=== PATIENT | male | born 1955 | race Caucasian/White ===

== ENCOUNTER → 2017-03-18 | Outpatient (CLI) | payer BC | END | disposition home or self-care (01) | LOC: LABPAT 09:23 | PROVIDERS: ATTEND Orthopaedic Surgery | DX: Z01.812 Encounter for preprocedural laboratory examination (principal) | CPT/HCPCS: 86850; 86900; 86901; 87070 ==

== ENCOUNTER → 2017-12-10 | Outpatient (CLI) | payer OTHER ==
--- NOTE | 2017-12-10 13:26 | CTL ---
EXAMINATION TYPE: CT Low Dose Lung DATE OF EXAM ORDERED: 12/10/2017 HISTORY: . Lung cancer screening CT DLP: 113.[address] CTDI: 3.2 mGy Automated exposure control for dose reduction was used. COMPARISON: None TECHNIQUE: Low dose computed tomography scan was performed through the chest at 1 mm thick sections a nd reconstructed images in the coronal plane at [address] DIAGNOSTIC QUALITY: Satisfactory FINDINGS: LUNG NODULES: None. a nodule with a size of . Nodule Size in Millimeters mm was visualized with Nodule Type: that is Nod ule state: in nature on image # CT Image slide number . a nodule with a size of . Nodule Size in Millimeters mm was visualized with Nodule Type: that is Nod ule state: in nature on image # CT Image slide number . LUNGS: There is diffuse emphysematous changes involving the lungs. There is apical pleural thickening bilate rally. Subsegmental consolidation involving the right lower lobe and right upper lobe is most typical of ate lectasis. No sizable pleural effusion. No pneumothorax. Changes of basilar and central bronchiectasis. Pulmonary nodules: 1. There is a 3 mm pleural-based nodule within the anterior segment of the right lower lobe. 2. There is a 4 mm nodule within the right upper lobe. 3. There are 2 calcified nodules within the right upper lobe noted on axial images 74 and 75 There is a small hiatal hernia. Coronary artery calcification seen. Assessment for adenopathy is limi cuate by noncontrast technique. Grossly no pathologic adenopathy. Atherosclerotic change of the vascula ture. Hypertrophic and degenerative change of the spine. IMPRESSION: 1. Diffuse emphysematous changes are seen with a couple less than 5 mm pulmonary nodule identified. FOLLOW UP CT CHEST RECOMMENDATION: Six-month follow-up recommended CT LUNG RAD: Category 2
== END | disposition home or self-care (01) ==
LOC: RADCTMAIN 06:47
PROVIDERS: ATTEND Family Medicine
DX: Z12.2 Encounter for screening for malignant neoplasm of respiratory organs (principal); R91.1 Solitary pulmonary nodule; J43.9 Emphysema, unspecified; Z87.891 Personal history of nicotine dependence

== ENCOUNTER → 2018-02-09 | Outpatient (CLI) | payer OTHER ==
--- NOTE | 2018-02-09 08:06 | MR ---
EXAMINATION TYPE: MR knee LT wo con DATE OF EXAM: 02/09/2018 COMPARISON: NONE HISTORY: Pain in left knee TECHNIQUE: Multiplanar, multisequence imaging of the left knee is performed without IV contrast. FINDINGS: MEDIAL MENISCUS: Anterior and posterior horns are intact without tear. There is increased signal with in the posterior horn and the body of the medial meniscus without continuity of the articular surface s representing myxoid degeneration. LATERAL MENISCUS: Minimal increased signal seen in the posterior horn of the lateral meniscus with sm all free edge radial tear seen on sagittal PD fat-sat image 11 is there is undulation of the free edg e. Anterior horn is intact. CRUCIATE LIGAMENTS: The anterior and posterior cruciate ligaments are intact. However there is increa sed signal and thickening of the insertional fibers suggestive of low-grade sprain. COLLATERAL LIGAMENTS: The medial collateral ligament and lateral collateral ligament complex are inta ct and unremarkable. EXTENSOR MECHANISM: Visualized quadriceps and patellar tendons are intact. EFFUSION: No significant suprapatellar joint effusion. POPLITEAL CYST: No popliteal/lundberg cyst. TRICOMPARTMENT SPACES: No significant joint space narrowing. Very small marginal osteophytes are seen of the lateral compartment. CARTILAGE: Partial-thickness chondral defect is present of the lateral tibial plateau measuring 5 mm. Signal heterogeneity is seen in the medial weightbearing surface with focal fissure on image 24 on t he sagittal PD fat-sat sequence. However there is no focal full-thickness cartilaginous defect. Simil nancy slight signal heterogeneity seen of the lateral patellar facet with no focal partial or full-thi ckness defects. BONE MARROW SIGNAL: No focal abnormal marrow signal is appreciated. There is some limitation given me tallic hardware susceptibility artifact. OTHER: Susceptibility artifact is created from tibial metaphyseal and proximal diaphyseal surgical f ixation screws. Small subchondral cystic changes are seen anterior to the tibial eminence. IMPRESSION: 1. Small radial free edge tear of the posterior horn of the lateral meniscus. 2. 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 3. Mild unicompartmental (lateral compartment) arthrosis and mild tricompartmental chondrosis with 5 mm partial-thickness chondral defect of the lateral tibial plateau. No underlying bone marrow edema. 4. Findings compatible with low-grade ACL sprain. 5. Partial visualization of postsurgical fixation of the proximal tibia.
== END | disposition home or self-care (01) ==
LOC: RADMRIMAIN 06:02
PROVIDERS: ATTEND Specialist
DX: S83.282A Other tear of lateral meniscus, current injury, left knee, initial encounter (principal); M17.12 Unilateral primary osteoarthritis, left knee; M89.8X6 Other specified disorders of bone, lower leg

== ENCOUNTER → 2018-02-11 | Outpatient (CLI) | payer OTHER | END | disposition home or self-care (01) | LOC: LABPAT 09:50 | PROVIDERS: ATTEND Orthopaedic Surgery | DX: Z01.812 Encounter for preprocedural laboratory examination (principal); M16.11 Unilateral primary osteoarthritis, right hip | CPT/HCPCS: 36415; 86850; 86900; 86901; 87070 ==

== ENCOUNTER 2018-02-21 10:15 | Inpatient (IN) | payer BC, OTHER ==
--- NOTE | 2018-02-20 11:10 | HP ---
HISTORY AND PHYSICAL DATE OF SERVICE: 02/21/2018. HISTORY: Ld Vickers is a 62-year-old patient seen with symptomatic right hip osteoarthritis. Treatment options were discussed. The patient elected to proceed with right total hip arthroplasty. Consent was obtained. Medical clearance provided by Dr. Mendes. PAST MEDICAL HISTORY: Hypertension. PAST SURGICAL HISTORY: Repair left foot tib-fib fracture. MEDICATIONS: Amlodipine, baclofen, Xarelto. ALLERGIES: None reported. SOCIAL HISTORY: Patient currently smokes cigarettes. PHYSICAL EXAMINATION: Physical evaluation of the right hip, he has very limited range of motion with severe pain. Diffuse tenderness. Positive impingement sign. Straight leg raise negative. Distal neurovascular exam intact. RADIOGRAPHIC DATA: Right hip radiographs reveal severe osteoarthritis. IMPRESSION: 1. Right hip osteoarthritis. 2. Hypertension. 3. Tobacco use. PLAN: Direct anterior right total hip arthroplasty. MMODL / IJN: [id number] /
[~2018-02-21 10:15] MED LIST: ACETAMINOPHEN TAB 500 MG TAB PO ONE; DEXAMETHASONE SOD PHOSPHATE 10 MG/ML 1 ML VIAL IV ONE; LIDOCAINE 1% 20 ML VIAL (10MG/ML) FOR IV START INTRADERMA PRN; MELOXICAM 7.5 MG TAB PO ONE; MIDAZOLAM 2 MG/2 ML VIAL IV PRN; SCOPOLAMINE 1.5MG/72HR PATCH TRANSDERM ONE; TRANEXAMIC ACID 1,000 MG in SODIUM CHLORIDE 0.9% 50 ML IVPB ONE; fentaNYL (PF) 50 MCG/ML 2 ML AMP IV PRN
[2018-02-21] MEDS ORDERED: ONDANSETRON 4 MG/2 ML VIAL ONE (10:33)
[2018-02-21] MEDS: LACTATED RINGERS 1,000 ML IV SCH ×5 (12:02→20:25)
[2018-02-21] MEDS ORDERED: ROPIVACAINE 246.25 MG, EPINEPHrine 0.5 MG, KETOROLAC 30 MG, cloNIDine HCL/PF 80 MCG, WA... MISCELLANE ONE ×5 (12:19)
[2018-02-21] MEDS ORDERED: ONDANSETRON 4 MG/2 ML VIAL IVP ONE (12:36)
[2018-02-21] MEDS ORDERED: SODIUM CHLORIDE 0.9% 100 ML BAG ONE (13:06)
[2018-02-21] MEDS ORDERED: PHENYLEPHRINE-0.9% NACL SYG 1 MG/10 ML SYRINGE ONE (13:06)
[2018-02-21] MEDS ORDERED: HYDROmorphone (PF) 1 MG/ML ONE (13:06)
[2018-02-21] MEDS ORDERED: GLYCOPYRROLATE 0.2 MG/ML 2 ML VIAL ONE (13:06)
[2018-02-21] MEDS ORDERED: ePHEDrine SULFATE/0.9% NACL/PF 50 MG/5 ML SYRINGE IV ONE (13:06)
[2018-02-21] MEDS ORDERED: EPINEPHrine 10 ML SYRINGE (0.1 MG/ML) ONE (13:06)
[2018-02-21] MEDS ORDERED: diphenhydrAMINE 50 MG/ML 1 ML VIAL ONE (13:06)
[2018-02-21] MEDS ORDERED: TRANEXAMIC ACID 1,000 MG/10 ML VIAL ONE (13:06)
[2018-02-21] MEDS ORDERED: fentaNYL (PF) 50 MCG/ML 2 ML AMP ONE (13:06)
[2018-02-21] MEDS ORDERED: MIDAZOLAM 2 MG/2 ML VIAL ONE (13:06)
[2018-02-21] MEDS ORDERED: LACTATED RINGERS 1,000 ML IV ONE ×2 (13:57→15:39)
[2018-02-21] MEDS ORDERED: HYDROcodone/APAP 7.5-325MG 1 EACH TAB PO PRN (15:47)
[2018-02-21] MEDS ORDERED: HYDROmorphone 0.5 MG/0.5 ML SYRINGE IVP PRN ×3 (15:47)
[2018-02-21] MEDS ORDERED: hydrOXYzine PAMOATE 25 MG CAP PO PRN (15:47)
[2018-02-21] MEDS ORDERED: ONDANSETRON 4 MG/2 ML VIAL IVP PRN (15:47)
[2018-02-21] MEDS ORDERED: NALOXONE 0.4 MG/ML 1 ML VIAL IV PRN (15:47)
--- NOTE | 2018-02-21 15:47 | P.OP ---
Date of Procedure: 02/21/18 Preoperative Diagnosis: Right hip osteoarthritic Postoperative Diagnosis: Right hip osteoarthritis Procedure(s) Performed: Direct anterior right total hip arthroplasty Implants: 1. Depuy Corail ZABRINA size 16 high offset no collar press-fit femoral stem 2. Depuy pinnacle 64 mm press-fit acetabular shell 3. Depuy pinnacle polyethylene acetabular liner +4 neutral 36 mm ID 64 mm OD 4. Biolox delta ceramic femoral head +8.5 36 mm Anesthesia: local, spinal Surgeon: Denis Flores Parking Cashier #1: Randy Young Estimated Blood Loss (ml): 500 Pathology: other (Femoral head) Condition: stable Disposition: PACU Indications for Procedure: 62-year-old patient seen was symptomatic right hip osteoarthritis. After treatment options were discussed he elected to proceed with direct anterior right total hip arthroplasty. Operative Findings: see description of procedure Description of Procedure: The patient was taken to the operative suite. Patient underwent a spinal anesthetic by the department of anesthesia. Patient was then transferred to the [place] table. Patient was given preoperative IV antibiotics and TXA. Both lower extremities were placed in standard leg spars. The hip was then prepped and draped in the normal sterile orthopedic fashion. A standard anterior incision was made beginning 3 cm lateral and 1 cm distal to the ASIS extending 10 cm. Dissection was then carried down through the subcutaneous soft tissues down to the fascia overlying the tensor fascia jurgen. An incision was now made through the fascia. Careful dissection was taken down exposing the tensor fascia jurgen muscle. A Cobra retractor was now placed along the medial femoral neck and a second one along the lateral femoral neck. The venous circumflex vessels were now identified, cauterized and clipped. We identified the anterior hip capsule. An incision was made through the hip capsule along the lateral border. Tag sutures were then placed along the anterior capsule and lateral capsule. We then performed a capsulotomy. Retractors were now placed around the femoral neck itself. A Cobra retractor was now placed along the anterior acetabulum. Good exposure was now noted of the femoral head/neck complex. Residual labrum was debrided out. We placed the extremity into 3 turns of fine traction. We were then able to introduce a skid in between the femoral head and acetabulum. A placed a awl into the femoral head. We took 2 turns of traction off the extremity. Rotation was now released. The femoral head was then dislocated without difficulty. Additional releasing was performed of the capsule. The head was then reduced. All traction was released. A femoral neck cut was now made with a sagittal saw. It was completed with an osteotome at the lateral neck area. The femoral head was now removed without difficulty. The extremity was now rotated to 60 of external rotation. It was locked in position. Residual labrum was now debrided out. Serial reaming was performed of the acetabulum. Once we reached the appropriate size and a trial was position and fit nicely. The appropriate size was now chosen opened and made available. It was introduced into the acetabulum without difficulty. The C-arm/fluoroscopy was now brought into the operative field. We made sure we had a true AP pelvic view. We now under direct C-arm/fluoroscopy introduced into the acetabular component with appropriate version and inclination. It was well seated and stable. The C-arm was pulled back. An appropriate liner was introduced and clicked into position. It was felt to be stable. At this point retractors were removed. The extremity was now placed into 120 external rotation with no traction. The leg was now dropped to the ground and adducted. Appropriate retractors were now positioned along the proximal femur. We also placed our femoral look into position. Additional capsular releasing was performed to gain access to the proximal femur. We now used a box osteotome. A canal finder was now utilized. Serial broaching was now performed and noted a very tight canal. At this point we used serial canal reamers to get a set to our probable size 16. We now placed back in our broach to a size 16 which a good stability and rotational stability as well. Appropriate calcar planing was performed. A trial head/neck was placed into position. The hip was now reduced. The C-arm/ fluoroscopy was brought back into the operative field. A spot film was obtained of the nonoperative hip. A spot film was obtained of the trial components. Overlays were performed, we noted good overall alignment and positioning for determining leg length. The C-arm/fluoroscopy was pulled back. Retractors were repositioned and the hip was dislocated. The leg was again taken down to the ground and adducted. Appropriate retractors were repositioned as well as the femoral hook. All trial components were removed. The femoral implant was opened along with the femoral head. The femoral implant was introduced with good purchase and fixation noted. The femoral head was introduced with good positioning and fixation noted. Retractors were now removed. The hip was now reduced. There appeared be good positioning of the hip. Bipolar cautery had been utilized intermittently through the procedure for hemostasis. The wound was irrigated copiously with pulse lavage mechanical irrigation. The fascia was repaired with Vicryl suture. The subcutaneous soft tissues were repaired in layers with Vicryl suture. The skin was approximated with pernio/Dermabond. Sterile dressings were applied. Patient was then awakened, transferred to a bed and taken to recovery in stable condition. Hunter CORONEL assisted with the procedure.
--- NOTE | 2018-02-21 16:11 | XR ---
Limited right hip HISTORY: Hip arthroplasty Intraoperative C-arm image documents the procedure
--- NOTE | 2018-02-21 16:13 | FL ---
Fluoroscopy HISTORY: Hip replacement 31 seconds fluoroscopy time supplied to the referring clinician. 1 intraoperative C-arm images docum ent the procedure. See dictated report from orthopedic surgery.
[2018-02-21] MEDS ORDERED: NOREPINEPHRIN 16 MG-0.9%NS PMX 16 MG/250 ML ML IV SCH (16:30)
--- NOTE | 2018-02-21 17:19 | XR ---
EXAMINATION: XR chest 1V portable DATE AND TIME: 02/21/2018 5:03 PM ORDERING PROVIDER: Monico Velez CLINICAL INDICATION: Central line placement TECHNIQUE: AP portable semiupright CXR COMPARISON: None. DESCRIPTION: Right IJ catheter tip superimposed over the mid SVC. On this portable semiupright chest x-ray there is no evidence of pneumothorax. Pleural spaces are neg ative. There is mild silhouetting of the arborization of the pulmonary vasculature symmetrically by a fine r eticular pattern of increased density, rather subtle. These findings can correlate with the clinical diagnosis of mild interstitial phase pulmonary edema. The cardiac silhouette and mediastinal hilar silhouettes are unremarkable. The bones and soft tissues are negative for acute findings. IMPRESSION: No definite acute process, although clinical exclusion of mild interstitial phase pulmonary edema is requested.
[2018-02-21 17:34] LABS: Basophils % (A) 0 %; Eosinophils # (A) 0.1 k/uL (0-0.7); Eosinophils % (A) 1 %; HCT 35.2 % (39.0-53.0); HGB 11.4 gm/dL (13.0-17.5); Lymphocytes % (A) 10 %; MCH 30.3 pg (25.0-35.0); MCHC 32.4 g/dL (31.0-37.0); MCV 93.5 fL (80.0-100.0); Mean Platelet Volume 7.5; Monocytes # (A) 0.4 k/uL (0-1.0); Monocytes % (A) 4 %; Neutrophils # (A) 7.8 k/uL (1.3-7.7); Neutrophils % (A) 84 %; Platelet Count 171 k/uL (150-450); RBC 3.77 m/uL (4.30-5.90); RDW 13.7 % (11.5-15.5); WBC 9.3 k/uL (3.8-10.6)
[2018-02-21 17:41] LABS: ALT 31 U/L (21-72); AST 24 U/L (17-59); Albumin 2.3 g/dL (3.5-5.0); Alkaline Phosphatase 39 U/L (38-126); Anion Gap 7 mmol/L; Blood Urea Nitrogen 15 mg/dL (9-20); Calcium 7.4 mg/dL (8.4-10.2); Carbon Dioxide 21 mmol/L (22-30); Chloride 111 mmol/L (98-107); Glucose 87 mg/dL (74-99); Potassium 4.2 mmol/L (3.5-5.1); Sodium 139 mmol/L (137-145); Total Bilirubin 0.4 mg/dL (0.2-1.3); Total Protein 4.4 g/dL (6.3-8.2)
[2018-02-21 17:45] LABS: INR 1.4 (<1.2); Prothrombin Time 12.7 sec (9.0-12.0)
[2018-02-21 18:06] LABS: Glucose,Whole Blood 101 mg/dL (75-99)
[2018-02-21] MEDS ORDERED: SODIUM CHLORIDE 0.9% 250 ML IV ONE (18:17)
[2018-02-21] MEDS: HYDROcodone/APAP 7.5-325MG 1 EACH TAB PO PRN (20:57)
[2018-02-21] MEDS: SENNOSIDES-DOCUSATE SODIUM 1 EACH TAB PO SCH (20:58)
[2018-02-21] MEDS: traMADol 50 MG TAB PO SCH (20:58)
[2018-02-21] MEDS: ceFAZolin IN SWFI 2 GM/20 ML SYRINGE IVP SCH (20:58)
[2018-02-21] MEDS: SODIUM CHLORIDE 0.9% 1,000 ML IV SCH (20:58)
[2018-02-21 23:10] LABS: Magnesium 1.6 mg/dL (1.6-2.3); Potassium 4.5 mmol/L (3.5-5.1)
[2018-02-22] MEDS: MAGNESIUM SULFATE-D5W PMX 1 GM in DEXTROSE/WATER 1 100ML.BAG IVPB SCH ×2 (00:14→02:28)
[2018-02-22] MEDS: SODIUM CHLORIDE 0.9% 1,000 ML IV SCH ×3 (02:29→13:09)
[2018-02-22] MEDS: traMADol 50 MG TAB PO SCH ×5 (02:29→22:09)
[2018-02-22] MEDS: ceFAZolin IN SWFI 2 GM/20 ML SYRINGE IVP SCH (02:29)
[2018-02-22 05:04] LABS: Basophils % (A) 0 %; Eosinophils # (A) 0.1 k/uL (0-0.7); Eosinophils % (A) 2 %; HCT 36.6 % (39.0-53.0); HGB 12.2 gm/dL (13.0-17.5); Lymphocytes # (A) 1.4 k/uL (1.0-4.8); Lymphocytes % (A) 18 %; MCH 31.2 pg (25.0-35.0); MCHC 33.3 g/dL (31.0-37.0); MCV 93.7 fL (80.0-100.0); Mean Platelet Volume 6.9; Monocytes # (A) 0.4 k/uL (0-1.0); Monocytes % (A) 6 %; Neutrophils # (A) 5.5 k/uL (1.3-7.7); Neutrophils % (A) 73 %; Platelet Count 177 k/uL (150-450); RBC 3.91 m/uL (4.30-5.90); RDW 13.5 % (11.5-15.5); WBC 7.5 k/uL (3.8-10.6)
[2018-02-22 05:27] LABS: Anion Gap 8 mmol/L; Blood Urea Nitrogen 16 mg/dL (9-20); Calcium 7.9 mg/dL (8.4-10.2); Carbon Dioxide 22 mmol/L (22-30); Chloride 104 mmol/L (98-107); Glucose 107 mg/dL (74-99); Potassium 4.1 mmol/L (3.5-5.1); Sodium 134 mmol/L (137-145)
[2018-02-22] MEDS: ENOXAPARIN 40 MG/0.4 ML SYRINGE SQ SCH (08:25)
[2018-02-22] MEDS: FAMOTIDINE 20 MG TAB PO SCH (08:25)
[2018-02-22] MEDS: MELOXICAM 7.5 MG TAB PO SCH (08:25)
--- NOTE | 2018-02-22 11:27 | P.PN ---
Subjective Progress Note Date: 02/22/18 Principal diagnosis: Status post right direct anterior total hip arthroplasty Patient is seen today resting in his hospital bed, he is on the ICU unit at this time. During surgery yesterday, he did have an episode of significantly low blood pressure, there is concern of a heart block. Proper measures were taken by the anesthesia room staff, he was stable throughout. Cardiology was consulted with regards to the patient. He is examined at bedside today, he's feeling very well at this time. No pain in the hip. He denies any chest pain. He has not been up ambulating at this time. Objective - Vital Signs Vital signs: Vital Signs Temp 97.9 F 02/22/18 08:00 Pulse 64 02/22/18 10:00 Resp 14 02/22/18 10:00 BP 101/67 02/22/18 10:00 Pulse Ox 90 L 02/22/18 10:00 Intake & Output 02/21/18 02/22/18 02/22/18 18:59 06:59 18:59 Intake Total 4400 2480 225 Output Total 500 975 730 Balance 3900 1505 -505 Weight 107.7 kg Intake: IV 4150 1200 Sodium Chloride 0.9% 1, 100 1200 000 ml @ 100 mls/hr IV . Q10H [facility] Rx#:[id number] Intake, IV Titration 250 225 Amount Sodium Chloride 0.9% 1, 225 000 ml @ 75 mls/hr IV . [id number] [facility] Rx#:[id number] Sodium Chloride 0.9% 250 250 ml @ 999 mls/hr IV .Q16M [facility] Rx#:[id number] Oral 1280 Output: Urine 975 730 Estimated Blood Loss 500 Other: Voiding Method Urinal ABP, PAP, CO, CI - Last Documented Arterial Blood Pressure 132/70 - Exam Right lower extremity: Incision is clean, dry, and intact. The prineo tape is in good condition. There is minimal soft tissue swelling and ecchymosis surrounding the medial and lateral aspects of the incision. Calf is soft, no tenderness with palpation. Plantar flexion, dorsiflexion, EHL, FHL are intact. Sensory exam to light touch throughout the extremity is intact, dorsal pedis pulses 2+. - Labs CBC & Chem 7: 02/22/18 04:45 02/22/18 04:45 Labs: Abnormal Lab Results - Last 24 Hours (Table) 02/21/18 02/21/18 02/21/18 Range/Units 16:50 16:50 16:50 RBC 3.77 L (4.30-5.90) m/uL Hgb 11.4 L (13.0-17.5) gm/dL Hct 35.2 L (39.0-53.0) % Neutrophils # 7.8 H (1.3-7.7) k/uL PT 12.7 H (9.0-12.0) sec INR 1.4 H (<1.2) Sodium (137-145) mmol/L Chloride 111 H (98-107) mmol/L Carbon Dioxide 21 L (22-30) mmol/L Glucose (74-99) mg/dL POC Glucose (mg/dL) (75-99) mg/dL Calcium 7.4 L (8.4-10.2) mg/dL Troponin I (0.000-0.034) ng/mL Total Protein 4.4 L (6.3-8.2) g/dL Albumin 2.3 L (3.5-5.0) g/dL 02/21/18 02/21/18 02/21/18 Range/Units 16:50 18:04 22:12 RBC (4.30-5.90) m/uL Hgb (13.0-17.5) gm/dL Hct (39.0-53.0) % Neutrophils # (1.3-7.7) k/uL PT (9.0-12.0) sec INR (<1.2) Sodium (137-145) mmol/L Chloride (98-107) mmol/L Carbon Dioxide (22-30) mmol/L Glucose (74-99) mg/dL POC Glucose (mg/dL) 101 H (75-99) mg/dL Calcium (8.4-10.2) mg/dL Troponin I 0.059 H* 0.064 H* (0.000-0.034) ng/mL Total Protein (6.3-8.2) g/dL Albumin (3.5-5.0) g/dL 02/22/18 02/22/18 02/22/18 Range/Units 04:45 04:45 04:45 RBC 3.91 L (4.30-5.90) m/uL Hgb 12.2 L (13.0-17.5) gm/dL Hct 36.6 L (39.0-53.0) % Neutrophils # (1.3-7.7) k/uL PT (9.0-12.0) sec INR (<1.2) Sodium 134 L (137-145) mmol/L Chloride (98-107) mmol/L Carbon Dioxide (22-30) mmol/L Glucose 107 H (74-99) mg/dL POC Glucose (mg/dL) (75-99) mg/dL Calcium 7.9 L (8.4-10.2) mg/dL Troponin I 0.039 H* (0.000-0.034) ng/mL Total Protein (6.3-8.2) g/dL Albumin (3.5-5.0) g/dL Assessment and Plan Plan: Assessment: 1. Postop day 1 status post direct anterior right total hip arthroplasty Plan: Pain control, continue use of low-dose oral medication Daily physical therapy GI and DVT prophylaxis per cardiac recommendation Cardiology recommendations Internal medicine recommendations Daily dressing changes Anticipated discharge home in the next day or 2 Time with Patient: Less than 30
--- NOTE | 2018-02-22 11:47 | ECHOF ---
Referral Reason:EKG changes MEASUREMENTS -------- HEIGHT: 190.5 cm WEIGHT: 99.8 kg BP: 104/52 RVIDd: 2.6 cm (< 3.3) IVSd: 1.3 cm (0.6 - 1.1) LVIDd: 3.5 cm (3.9 - 5.3) LVPWd: 1.2 cm (0.6 - 1.1) IVSs: 1.3 cm LVIDs: 2.4 cm LVPWs: 1.3 cm LAESV Index (A-L): 10.07 ml/m Ao Diam: 3.3 cm (2.0 - 3.7) AV Cusp: 1.9 cm (1.5 - 2.6) LA Diam: 2.9 cm (2.7 - 3.8) EPSS: 0.7 cm MV E Jaya: 0.60 m/s MV DecT: 294 ms MV A Jaya: 0.61 m/s MV E/A Ratio: 0.99 RAP: 5.00 mmHg RVSP: 12.05 mmHg MV EF SLOPE: 40.52 mm/s (70 - 150) MV EXCURSION: 0.92 cm (> 18.000) FINDINGS -------- Sinus rhythm. This was a technically difficult study with suboptimal views. The left ventricular size is normal. There is mild concentric left ventricular hypertrophy. Overa ll left ventricular systolic function is normal with, an EF between 60 - 65 %. The right ventricle is normal in size and function. Normal LA size by volume 22+/-6 ml/m2. The right atrium is normal in size. 3ml of Lumason was utilized for enhancement of images. The aortic valve is trileaflet, and appears structurally normal. No aortic stenosis or regurgitation. The mitral valve leaflets are mildly thickened. There is trace to mild mitral regurgitation. Trace tricuspid regurgitation present. Right ventricular systolic pressure is normal at < 35 mmHg. There is no evidence of pulmonary hypertension. The pulmonic valve was not well visualized. There is no pulmonic regurgitation present. The aortic root size is normal. Normal inferior vena cava with normal inspiratory collapse consistent with estimated right atrial pre ssure of 5 mmHg. There is no pericardial effusion. CONCLUSIONS -------- 1. Sinus rhythm. 2. This was a technically difficult study with suboptimal views. 3. The left ventricular size is normal. 4. There is mild concentric left ventricular hypertrophy. 5. Overall left ventricular systolic function is normal with, an EF between 60 - 65 %. 6. Normal LA size by volume 22+/-6 ml/m2. 7. 3ml of Lumason was utilized for enhancement of images. 8. The aortic valve is trileaflet, and appears structurally normal. No aortic stenosis or regurgitati on. 9. The mitral valve leaflets are mildly thickened. 10. There is trace to mild mitral regurgitation. 11. Trace tricuspid regurgitation present. 12. Right ventricular systolic pressure is normal at < 35 mmHg. 13. The pulmonic valve was not well visualized. 14. There is no pulmonic regurgitation present. 15. The aortic root size is normal. 16. There is no pericardial effusion. [employer]STATE LEGAL ASSISTANT: Erik Clancy RDCS
--- NOTE | 2018-02-22 12:00 | CONS ---
CONSULTATION This gentleman was seen by me yesterday evening when I came in to see him in the ICU. He underwent an elective right total hip arthroplasty via anterior approach by Dr. Flores. Before he began the surgery after they gave him a spinal he became hypotensive and bradycardic, given some epinephrine and surgery was performed. Post procedure again he developed hypotension, bradycardia and I was asked to see him. Apparently he had some EKG changes and isolated PVCs. Troponin was borderline and because of hypotension, bradycardia, I recommended Levophed which was probably used for a very short duration and then he was transferred over to the ICU. I evaluated him in the ICU. At that time, his blood pressure was about 90 or so systolic and I gave him additional IV fluids of nearly 1-1/2 L total and with this he improved remarkably. This morning he is asymptomatic, resting comfortably. Blood pressure and heart rate are good and he is not on any pressors at this time. He remains in sinus rhythm. EKG this morning is unremarkable. Troponin does not show any significant elevation to suggest myocardial damage. PAST MEDICAL HISTORY: 1. Degenerative joint disease. 2. Hypertension, on a combination of amlodipine and benazepril. 3. The patient also has a history of some bronchial asthma type picture as well. MEDICATIONS: Home medications include amlodipine benazepril 5/20, [place], Flexeril, and some inhalers. ALLERGIES: He is allergic to VANCOMYCIN. PHYSICAL EXAMINATION: On examination this morning, his blood pressure is 127/72, pulse rate is 64 per minute regular. HEENT: Unremarkable. Fundus was not examined by me. NECK: Supple. No JVD. I do not hear a carotid bruit. There is a central line in the right neck area in the jugular line. Heart exam reveals S1, S2 heard normally. No rub, murmur or gallop. Lungs reveal decent air entry. Abdomen is soft. Lower extremity exam was deferred. Central nervous system is grossly within normal limits. Echocardiogram performed yesterday revealed preserved systolic function. Troponin levels do not suggest any myocardial injury of significance at this time. The levels were 0.05, 0.06 and 0.039, which can reflect some relation to the hypotension that was there preoperatively. IMPRESSION: 1. Hypotension, probably related to high spinal anesthesia requiring IV fluids. 2. Hypertension. 3. Status post right total hip arthroplasty. 4. No evidence to suggest any myocardial damage. RECOMMENDATION: I am recommending that we can decrease the IV fluids to 75 mL/hour, continue enoxaparin 40 mg subcu as ordered by Dr. Flores and moved him to the orthopedic floor. He is not on any pressors at this time. I will continue to see him as needed during his hospitalization. We will continue to see him during his hospitalization as needed. Thank you very much for the consult. ANISHA / LYNN: [id number] /
--- NOTE | 2018-02-22 12:03 | P.CNPUL ---
History of Present Illness Consult date: 02/22/18 Reason for consult: other (Postoperative hypotension) Chief complaint: Right hip osteoarthritis and pain History of present illness: This is a 62-year-old white male who is status post right direct anterior total hip arthroplasty, surgery was done on 02/21/2018. Intraoperatively, patient had an episode of hypotension, this was addressed by cardiology, and fluid boluses were given. Postoperatively patient was admitted to the ICU, and I was asked to see him on consultation. By the time the patient arrived to the ICU, he was hemodynamically stable, responded well to fluid boluses, and no evidence of any significant cardiac arrhythmia noted. Patient was seen by cardiology on consultation, and cleared him to be transferred out of the ICU today to a surgical bed. Patient has history of COPD, usually mild, maintained on trelegy ellipta 1 puff daily, and he rarely uses his rescue inhaler/albuterol. Upon my evaluation, the patient was basically asymptomatic. No cough no wheezing no shortness of breath no chest pain. No headache no blurred vision no dizziness. No palpitations no diaphoresis. No nausea no vomiting no abdominal pain, no melena, no hematemesis is no dysuria and no frequency no urgency. Review of Systems 14 point review of systems were obtained, please refer to pertinent positives and negatives as noted in HPI. Past Medical History Past Medical History: COPD, Hypertension Additional Past Medical History / Comment(s): STOMACH BLOATING. Esophagitis History of Any Multi-Drug Resistant Organisms: None Reported Past Surgical History: Hernia Repair, Orthopedic Surgery Additional Past Surgical History / Comment(s): RT KNEE SCOPE. COLONOSCOPY.EGD. Martita fundoplication with large hiatal hernia repair and ventral hernia repair Past Anesthesia/Blood Transfusion Reactions: No Reported Reaction Past Psychological History: No Psychological Hx Reported Smoking Status: Heavy tobacco smoker Past Alcohol Use History: Occasional Additional Past Alcohol Use History / Comment(s): SMOKING 2 PPD SINCE AGE 13 EST. Past Drug Use History: None Reported - Past Family History Sister(s) Additional Family Medical History / Comment(s): BLOOD CLOT "IN WAISTLINE" Mother Family Medical History: No Reported History Medications and Allergies Home Medications Medication Instructions Recorded Confirmed Type Cyclobenzaprine [Flexeril] 10 mg PO HS PRN 01/30/16 02/21/18 History Famotidine [Pepcid] 20 mg PO BID 02/09/18 02/21/18 History Fluticasone/Umeclidin/Vilanter 1 puff INHALATION RT-DAILY 02/09/18 02/21/18 History [Trelegy Ellipta 100-62.5-25] amLODIPine BESYLATE/BENAZEPRIL 1 tab PO QAM 02/09/18 02/21/18 History [amLODIPine BESYLATE/BENAZEPRIL 5-20 mg] HYDROcodone/APAP 7.5-325MG [[place] 1 - 2 tab PO Q6HR PRN 02/21/18 02/21/18 History 7.5] Allergies Allergy/AdvReac Type Severity Reaction Status Date / Time vancomycin Allergy Rash/Hives Verified 02/21/18 16:52 Physical Exam Vitals: Vital Signs Temp Pulse Pulse Resp BP BP BP 02/22/18 10:00 64 14 101/67 02/22/18 09:00 66 29 H 112/70 02/22/18 08:00 97.9 F 64 14 02/22/18 07:00 64 24 02/22/18 06:00 59 L 12 02/22/18 05:00 64 14 02/22/18 04:00 98 F 68 18 02/22/18 03:00 62 10 L 102/67 02/22/18 02:00 82 14 02/22/18 01:00 71 10 L 02/22/18 00:00 98 F 72 10 L 02/21/18 23:49 67 11 L 02/21/18 23:00 67 12 02/21/18 22:00 71 10 L 02/21/18 21:00 60 11 L 02/21/18 20:00 97.7 F 65 10 L 02/21/18 19:00 63 9 L 02/21/18 18:33 63 16 02/21/18 18:20 81 15 02/21/18 18:10 64 16 02/21/18 18:00 64 16 02/21/18 17:50 97.4 F L 64 18 02/21/18 17:28 61 16 111/57 02/21/18 17:00 82 16 92/58 111/53 02/21/18 16:30 64 16 86/57 114/51 02/21/18 16:05 96.8 F L 65 18 Pulse Ox 02/22/18 10:00 90 L 06/05/18 09:00 92 L 02/22/18 08:00 96 02/22/18 07:00 96 02/22/18 06:00 95 02/22/18 05:00 98 02/22/18 04:00 94 L 02/22/18 03:00 95 02/22/18 02:00 94 L 02/22/18 01:00 95 02/22/18 00:00 96 02/21/18 23:49 95 02/21/18 23:00 94 L 02/21/18 22:00 92 L 02/21/18 21:00 92 L 02/21/18 20:00 94 L 02/21/18 19:00 94 L 02/21/18 18:33 02/21/18 18:20 97 02/21/18 18:10 97 02/21/18 18:00 94 L 02/21/18 17:50 02/21/18 17:28 96 02/21/18 17:00 97 02/21/18 16:30 100 02/21/18 16:05 96 Intake and Output 02/21/18 02/22/18 02/22/18 22:59 06:59 14:59 Intake Total 3050 1780 225 Output Total 975 730 Balance 3050 805 -505 Intake: IV 2400 900 Sodium Chloride 0.9% 1, 400 900 000 ml @ 100 mls/hr IV . Q10H [facility] Rx#:[id number] Intake, IV Titration 250 225 Amount Sodium Chloride 0.9% 1, 225 000 ml @ 75 mls/hr IV . [id number] [facility] Rx#:[id number] Sodium Chloride 0.9% 250 250 ml @ 999 mls/hr IV .Q16M [facility] Rx#:[id number] Oral 400 880 Output: Urine 975 730 Other: Voiding Method Urinal Weight 107.7 kg ABP, PAP, CO, CI - Last 8 Hours Arterial Blood Pressure 132/70 Arterial Blood Pressure 123/63 Arterial Blood Pressure 101/62 Arterial Blood Pressure 127/72 Arterial Blood Pressure 118/62 Physical Exam: Revealed a 62-year-old white male in no distress. Head: Atraumatic, normocephalic. HEENT:[Neck is supple.] [No neck masses.] [No thyromegaly.] [No JVD.] PERRLA, EOMI, no icterus. Moist mucous membranes. Chest: [Clear throughout, no crackles, no rhonchi, no wheezes.] Cardiac Exam: [Normal S1 and S2, no S3 gallop, no murmur.] Abdomen: [Soft, nontender, no megaly, no rebound, no guarding, normal bowel sounds.] Extremities: [No clubbing, no edema, no cyanosis.] Neurological Exam: [No focal neurologic deficit.] Psychiatric: Normal mood affect and mental status examination. Lymphatics: No lymphadenopathy was appreciated. Results - Laboratory Findings CBC and BMP: 02/22/18 04:45 02/22/18 04:45 PT/INR, D-dimer PT 12.7 sec (9.0-12.0) H 02/21/18 16:50 INR 1.4 (<1.2) H 02/21/18 16:50 Abnormal lab findings: Abnormal Labs 02/21/18 02/21/18 02/21/18 16:50 16:50 16:50 RBC 3.77 L Hgb 11.4 L Hct 35.2 L Neutrophils # 7.8 H PT 12.7 H INR 1.4 H Sodium Chloride 111 H Carbon Dioxide 21 L Glucose POC Glucose (mg/dL) Calcium 7.4 L Troponin I Total Protein 4.4 L Albumin 2.3 L 02/21/18 02/21/18 02/21/18 16:50 18:04 22:12 RBC Hgb Hct Neutrophils # PT INR Sodium Chloride Carbon Dioxide Glucose POC Glucose (mg/dL) 101 H Calcium Troponin I 0.059 H* 0.064 H* Total Protein Albumin 02/22/18 02/22/18 02/22/18 04:45 04:45 04:45 RBC 3.91 L Hgb 12.2 L Hct 36.6 L Neutrophils # PT INR Sodium 134 L Chloride Carbon Dioxide Glucose 107 H POC Glucose (mg/dL) Calcium 7.9 L Troponin I 0.039 H* Total Protein Albumin - Diagnostic Findings Chest x-ray: image reviewed (No evidence of active disease.) Assessment and Plan Assessment: Impression: 1 postoperative day #1, status post direct anterior right total hip arthroplasty. 2 postoperative hypotension, secondary to pain meds, and hypovolemia. Expected. 3 history of COPD, presently asymptomatic. Recommendation: Patient was cleared for transfer out of the ICU, he is presently clinically stable, will follow on when necessary basis. We will place the patient on albuterol HFA, 2 puffs 4 times a day when necessary. Encourage incentive spirometry, and early ambulation as per orthopedics Time with Patient: Greater than 30
[2018-02-22] MEDS: HYDROcodone/APAP 7.5-325MG 1 EACH TAB PO PRN ×2 (12:33→17:46)
--- NOTE | 2018-02-22 12:33 | P.CONS ---
History of Present Illness - Reason for Consult Consult date: 02/22/18 Medical management Requesting physician: Denis Flores - Chief Complaint Right total hip arthroplasty - History of Present Illness This is a 62-year-old male, patient of Dr. Mendes. He has a known past medical history of COPD, hypertension, nicotine dependence, previous left lower extremity DVT. Patient underwent a right total hip arthroplasty with Dr. Flores. Patient was given a spinal prior to surgery and became hypotensive and bradycardic. He then was given epinephrine and surgery was performed. He then developed hypotension and bradycardia and cardiology was consulted. Troponins have been borderline. Per cardiology Levophed was ordered and probably used for a short duration then patient was transferred to the ICU. Patient was then given 2 L IV fluids blood pressure and heart rate have improved. He's been seen by both cardiology and critical care service. They have cleared him for transfer out of the ICU. Patient's pain is controlled. He denies any chest pain or shortness of breath. Denies any nausea or vomiting. Denies any bowel movement changes or urinary symptoms. Review of Systems Review of systems please refer to HPI otherwise unremarkable Past Medical History Past Medical History: COPD, Hypertension Additional Past Medical History / Comment(s): STOMACH BLOATING. Esophagitis History of Any Multi-Drug Resistant Organisms: None Reported Past Surgical History: Hernia Repair, Orthopedic Surgery Additional Past Surgical History / Comment(s): RT KNEE SCOPE. COLONOSCOPY.EGD. Martita fundoplication with large hiatal hernia repair and ventral hernia repair Past Anesthesia/Blood Transfusion Reactions: No Reported Reaction Past Psychological History: No Psychological Hx Reported Smoking Status: Heavy tobacco smoker Past Alcohol Use History: Occasional Additional Past Alcohol Use History / Comment(s): SMOKING 2 PPD SINCE AGE 13 EST. Past Drug Use History: None Reported - Past Family History Sister(s) Additional Family Medical History / Comment(s): BLOOD CLOT "IN WAISTLINE" Mother Family Medical History: No Reported History Medications and Allergies Home Medications Medication Instructions Recorded Confirmed Type Cyclobenzaprine [Flexeril] 10 mg PO HS PRN 01/30/16 02/21/18 History Famotidine [Pepcid] 20 mg PO BID 02/09/18 02/21/18 History Fluticasone/Umeclidin/Vilanter 1 puff INHALATION RT-DAILY 02/09/18 02/21/18 History [Trelegy Ellipta 100-62.5-25] amLODIPine BESYLATE/BENAZEPRIL 1 tab PO QAM 02/09/18 02/21/18 History [amLODIPine BESYLATE/BENAZEPRIL 5-20 mg] HYDROcodone/APAP 7.5-325MG [[place] 1 - 2 tab PO Q6HR PRN 02/21/18 02/21/18 History 7.5] Allergies Allergy/AdvReac Type Severity Reaction Status Date / Time vancomycin Allergy Rash/Hives Verified 02/21/18 16:52 Physical Exam Vitals: Vital Signs Temp Pulse Pulse Pulse Resp BP BP 02/22/18 12:20 98 F 68 18 02/22/18 10:00 64 14 101/67 02/22/18 09:00 66 29 H 112/70 02/22/18 08:00 97.9 F 64 14 02/22/18 07:00 64 24 02/22/18 06:00 59 L 12 02/22/18 05:00 64 14 02/22/18 04:00 98 F 68 18 02/22/18 03:00 62 10 L 102/67 02/22/18 02:00 82 14 02/22/18 01:00 71 10 L 02/22/18 00:00 98 F 72 10 L 02/21/18 23:49 67 11 L 02/21/18 23:00 67 12 02/21/18 22:00 71 10 L 02/21/18 21:00 60 11 L 02/21/18 20:00 97.7 F 65 10 L 02/21/18 19:00 63 9 L 02/21/18 18:33 63 16 02/21/18 18:20 81 15 02/21/18 18:10 64 16 02/21/18 18:00 64 16 02/21/18 17:50 97.4 F L 64 18 02/21/18 17:28 61 16 02/21/18 17:00 82 16 92/58 02/21/18 16:30 64 16 86/57 02/21/18 16:05 96.8 F L 65 18 BP Pulse Ox 02/22/18 12:20 119/79 98 02/22/18 10:00 90 L 02/22/18 09:00 92 L 02/22/18 08:00 96 06/05/18 07:00 96 02/22/18 06:00 95 02/22/18 05:00 98 02/22/18 04:00 94 L 02/22/18 03:00 95 02/22/18 02:00 94 L 02/22/18 01:00 95 02/22/18 00:00 96 02/21/18 23:49 95 02/21/18 23:00 94 L 02/21/18 22:00 92 L 02/21/18 21:00 92 L 02/21/18 20:00 94 L 02/21/18 19:00 94 L 02/21/18 18:33 02/21/18 18:20 97 02/21/18 18:10 97 02/21/18 18:00 94 L 02/21/18 17:50 02/21/18 17:28 111/57 96 02/21/18 17:00 111/53 97 02/21/18 16:30 114/51 100 02/21/18 16:05 96 Intake and Output 02/21/18 02/22/18 02/22/18 22:59 06:59 14:59 Intake Total 3050 1780 225 Output Total 975 730 Balance 3050 805 -505 Intake: IV 2400 900 Sodium Chloride 0.9% 1, 400 900 000 ml @ 100 mls/hr IV . Q10H [facility] Rx#:[id number] Intake, IV Titration 250 225 Amount Sodium Chloride 0.9% 1, 225 000 ml @ 75 mls/hr IV . [id number] [facility] Rx#:[id number] Sodium Chloride 0.9% 250 250 ml @ 999 mls/hr IV .Q16M [facility] Rx#:[id number] Oral 400 880 Output: Urine 975 730 Other: Voiding Method Urinal Weight 107.7 kg ABP, PAP, CO, CI - Last 8 Hours Arterial Blood Pressure 132/70 Arterial Blood Pressure 123/63 Arterial Blood Pressure 101/62 Arterial Blood Pressure 127/72 Head normocephalic Neck supple Lungs clear to auscultation bilaterally no wheezing or crackles Heart regular rate and rhythm S1-S2, no rub or gallop Abdomen is soft nontender nondistended positive bowel sounds no hepatosplenomegaly Extremities no edema. Right hip dressing clean dry and intact Neuro alert and orientated to 3 Results CBC & Chem 7: 02/22/18 04:45 02/22/18 04:45 Labs: Abnormal Lab Results - Last 24 Hours (Table) 02/21/18 02/21/18 02/21/18 Range/Units 16:50 16:50 16:50 RBC 3.77 L (4.30-5.90) m/uL Hgb 11.4 L (13.0-17.5) gm/dL Hct 35.2 L (39.0-53.0) % Neutrophils # 7.8 H (1.3-7.7) k/uL PT 12.7 H (9.0-12.0) sec INR 1.4 H (<1.2) Sodium (137-145) mmol/L Chloride 111 H (98-107) mmol/L Carbon Dioxide 21 L (22-30) mmol/L Glucose (74-99) mg/dL POC Glucose (mg/dL) (75-99) mg/dL Calcium 7.4 L (8.4-10.2) mg/dL Troponin I (0.000-0.034) ng/mL Total Protein 4.4 L (6.3-8.2) g/dL Albumin 2.3 L (3.5-5.0) g/dL 02/21/18 02/21/18 02/21/18 Range/Units 16:50 18:04 22:12 RBC (4.30-5.90) m/uL Hgb (13.0-17.5) gm/dL Hct (39.0-53.0) % Neutrophils # (1.3-7.7) k/uL PT (9.0-12.0) sec INR (<1.2) Sodium (137-145) mmol/L Chloride (98-107) mmol/L Carbon Dioxide (22-30) mmol/L Glucose (74-99) mg/dL POC Glucose (mg/dL) 101 H (75-99) mg/dL Calcium (8.4-10.2) mg/dL Troponin I 0.059 H* 0.064 H* (0.000-0.034) ng/mL Total Protein (6.3-8.2) g/dL Albumin (3.5-5.0) g/dL 02/22/18 02/22/18 02/22/18 Range/Units 04:45 04:45 04:45 RBC 3.91 L (4.30-5.90) m/uL Hgb 12.2 L (13.0-17.5) gm/dL Hct 36.6 L (39.0-53.0) % Neutrophils # (1.3-7.7) k/uL PT (9.0-12.0) sec INR (<1.2) Sodium 134 L (137-145) mmol/L Chloride (98-107) mmol/L Carbon Dioxide (22-30) mmol/L Glucose 107 H (74-99) mg/dL POC Glucose (mg/dL) (75-99) mg/dL Calcium 7.9 L (8.4-10.2) mg/dL Troponin I 0.039 H* (0.000-0.034) ng/mL Total Protein (6.3-8.2) g/dL Albumin (3.5-5.0) g/dL Assessment and Plan Assessment: 1. Osteoarthritis: Status post right total hip arthroplasty. Estimated blood loss 500 mL 2. Hypotension and bradycardia possibly related to patient's spinal anesthesia. Improved with IV fluids. Patient seen evaluated by cardiology 3. Mildly elevated troponins: Seen by cardiology. They reported troponins did not show any significant elevation to suggest myocardial damage 4. History of COPD stable no evidence of exacerbation 5. Nicotine dependence: Discussed smoking cessation for greater than 3 minutes. Patient refusing nicotine patch 6. Essential hypertension history [place] patient's Norvasc and KITA inhibitor currently on hold DVT prophylaxis Lovenox and GI prophylaxis Pepcid Patient is medically stable to be transferred out of the ICU to surgical floor Thank you for this consultation. We will continue to follow along during patient's hospitalization Time with Patient: Greater than 30 (Greater than 60% of the total time spent in counseling and coordination of care.I performed an examination of the patient and discussed their management with the physician [employer]. I have reviewed the Physician [employer]'s notes and agree with the documented findings and plan of care)
[2018-02-22] MEDS: IPRATROPIUM-ALBUTEROL 3 ML NEB INHALATION SCH ×2 (15:45→19:58)
[2018-02-22] MEDS: SENNOSIDES-DOCUSATE SODIUM 1 EACH TAB PO SCH (22:09)
[2018-02-23] MEDS: HYDROcodone/APAP 7.5-325MG 1 EACH TAB PO PRN (06:03)
[2018-02-23] MEDS: IPRATROPIUM-ALBUTEROL 3 ML NEB INHALATION SCH ×3 (07:06→15:34)
[2018-02-23 07:51] LABS: Anion Gap 9 mmol/L; Blood Urea Nitrogen 11 mg/dL (9-20); Calcium 8.2 mg/dL (8.4-10.2); Carbon Dioxide 24 mmol/L (22-30); Chloride 103 mmol/L (98-107); Glucose 98 mg/dL (74-99); Potassium 4.5 mmol/L (3.5-5.1); Sodium 136 mmol/L (137-145)
--- NOTE | 2018-02-23 09:03 | P.PN ---
Subjective Progress Note Date: 02/23/18 Principal diagnosis: Right total hip arthroplasty, postop day 2, postoperative hypotension, resolved This is a 62-year-old white male who is status post right direct anterior total hip arthroplasty, surgery was done on 02/21/2018. Intraoperatively, patient had an episode of hypotension, this was addressed by cardiology, and fluid boluses were given. Postoperatively patient was admitted to the ICU, and I was asked to see him on consultation. By the time the patient arrived to the ICU, he was hemodynamically stable, responded well to fluid boluses, and no evidence of any significant cardiac arrhythmia noted. Patient was seen by cardiology on consultation, and cleared him to be transferred out of the ICU today to a surgical bed. Patient has history of COPD, usually mild, maintained on trelegy ellipta 1 puff daily, and he rarely uses his rescue inhaler/albuterol. Upon my evaluation, the patient was basically asymptomatic. No cough no wheezing no shortness of breath no chest pain. No headache no blurred vision no dizziness. No palpitations no diaphoresis. No nausea no vomiting no abdominal pain, no melena, no hematemesis is no dysuria and no frequency no urgency. On 02/23/2018 patient seen in follow-up on the surgical floor. He sitting up in the chair, in no acute distress, eating breakfast, denies any dyspnea, denies any specific complaints, he is on room air, pulse ox of 92%, vital signs are stable, he is afebrile. Lung sounds are clear to auscultation, no wheezing , no rhonchi no rales. His hypotension had resolved, patient was adequately fluid resuscitated, and his systolic blood pressure is ranging from 113-144, with diastolic ranging from 67-93 mmHg. Patient has been ambulating with a walker, and tolerating activity well. Pulmonary/critical care standpoint he remains stable. Objective - Vital Signs Vital signs: Vital Signs Temp 98.4 F 02/23/18 07:00 Pulse 84 02/23/18 07:17 Resp 18 02/23/18 07:00 BP 144/93 02/23/18 07:00 Pulse Ox 92 L 02/23/18 07:00 Intake & Output 02/22/18 02/23/18 02/23/18 18:59 06:59 18:59 Intake Total 802.5 Output Total 1130 Balance -327.5 Intake: Intake, IV Titration 562.5 Amount Sodium Chloride 0.9% 1, 562.5 000 ml @ 75 mls/hr IV . [id number] [facility] Rx#:[id number] Oral 240 Output: Urine 1130 Other: Voiding Method Urinal # Voids 1 ABP, PAP, CO, CI - Last Documented Arterial Blood Pressure 132/70 - Exam Physical Exam: Revealed a 62-year-old white male in no distress. Head: Atraumatic, normocephalic. HEENT:[Neck is supple.] [No neck masses.] [No thyromegaly.] [No JVD.] PERRLA, EOMI, no icterus. Moist mucous membranes. Chest: [Clear throughout, no crackles, no rhonchi, no wheezes.] Cardiac Exam: [Normal S1 and S2, no S3 gallop, no murmur.] Abdomen: [Soft, nontender, no megaly, no rebound, no guarding, normal bowel sounds.] Extremities: [No clubbing, no edema, no cyanosis.] Neurological Exam: [No focal neurologic deficit.] Psychiatric: Normal mood affect and mental status examination. Lymphatics: No lymphadenopathy was appreciated. - Labs CBC & Chem 7: 02/22/18 04:45 02/23/18 07:19 Labs: Abnormal Lab Results - Last 24 Hours (Table) 02/23/18 Range/Units 07:19 Sodium 136 L (137-145) mmol/L Calcium 8.2 L (8.4-10.2) mg/dL Assessment and Plan Plan: Assessment: 1 postoperative day #2, status post direct anterior right total hip arthroplasty. 2 postoperative hypotension, secondary to pain meds, and hypovolemia. Recovered , patient responded well to fluid boluses 3 history of COPD, presently asymptomatic. Recommendation: Patient remains stable from pulmonary standpoint, no dyspnea, he is on room air , lung sounds are clear. His hypertension has recovered. No acute events overnight, we will see the patient on as-needed basis. Continue albuterol HFA, 2 puffs 4 times a day when necessary. Encourage incentive spirometry, and early ambulation as per orthopedics I performed a history & physical examination of the patient and discussed their management with my nurse practitioner, Teri Wyatt. I reviewed the nurse practitioner's note and agree with the documented findings and plan of care. Lung sounds are clear. The findings and the impression was discussed with the patient. I attest to the documentation by the nurse practitioner. Time with Patient: Less than 30
[2018-02-23] MEDS: ENOXAPARIN 40 MG/0.4 ML SYRINGE SQ SCH (09:40)
[2018-02-23] MEDS: MELOXICAM 7.5 MG TAB PO SCH (09:41)
[2018-02-23] MEDS: FAMOTIDINE 20 MG TAB PO SCH (09:41)
[2018-02-23] MEDS: traMADol 50 MG TAB PO SCH ×2 (09:41→12:44)
--- NOTE | 2018-02-23 11:00 | P.PN ---
Progress Note - Text Progress Note Date: 02/23/18 Patient seen resting in chair comfortably. Patient reports she's been ambulating well and has some pain but well controlled with oral analgesics. Patient is requesting discharge. Incision stable. Logrolling hip is without pain. Homans and Oscar or negative. Distal neurovascular exam is intact. Impression: Status post right total hip arthroplasty Plan: Will discharge to home today if okay with cardiology
--- NOTE | 2018-02-23 13:44 | P.PN ---
Subjective Progress Note Date: 02/23/18 This is a 62-year-old male, patient of Dr. Mendes. He has a known past medical history of COPD, hypertension, nicotine dependence, previous left lower extremity DVT. Patient underwent a right total hip arthroplasty with Dr. Flores. Patient was given a spinal prior to surgery and became hypotensive and bradycardic. He then was given epinephrine and surgery was performed. He then developed hypotension and bradycardia and cardiology was consulted. Troponins have been borderline. Per cardiology Levophed was ordered and probably used for a short duration then patient was transferred to the ICU. Patient was then given 2 L IV fluids blood pressure and heart rate have improved. He's been seen by both cardiology and critical care service. They have cleared him for transfer out of the ICU. Patient's pain is controlled. He denies any chest pain or shortness of breath. Denies any nausea or vomiting. Denies any bowel movement changes or urinary symptoms. On 02/23/2018 patient was seen and examined he is sitting up in a chair feeling well he denies any complaints there is no fever or chills no headache or dizziness no chest pain no shortness of breath no cough no palpitation no nausea or vomiting no abdominal pain no diarrhea and no urinary symptoms Objective - Vital Signs Vital signs: Vital Signs Temp 98.4 F 02/23/18 07:00 Pulse 90 02/23/18 11:01 Resp 14 02/23/18 11:01 BP 144/93 02/23/18 07:00 Pulse Ox 95 02/23/18 10:54 Intake & Output 02/22/18 02/23/18 02/23/18 18:59 06:59 18:59 Intake Total 802.5 Output Total 1130 Balance -327.5 Intake: Intake, IV Titration 562.5 Amount Sodium Chloride 0.9% 1, 562.5 000 ml @ 75 mls/hr IV . [id number] [facility] Rx#:[id number] Oral 240 Output: Urine 1130 Other: Voiding Method Urinal # Voids 1 ABP, PAP, CO, CI - Last Documented Arterial Blood Pressure 132/70 - Exam Head normocephalic and atraumatic Neck supple Lungs clear to auscultation bilaterally no wheezing or crackles Heart regular rate and rhythm S1-S2, no rub or gallop Abdomen is soft nontender nondistended positive bowel sounds no hepatosplenomegaly Extremities no edema. Right hip dressing clean dry and intact Neuro alert and orientated to 3 - Labs CBC & Chem 7: 02/22/18 04:45 02/23/18 07:19 Labs: Abnormal Lab Results - Last 24 Hours (Table) 02/23/18 Range/Units 07:19 Sodium 136 L (137-145) mmol/L Calcium 8.2 L (8.4-10.2) mg/dL Assessment and Plan Plan: 1. Osteoarthritis: Status post right total hip arthroplasty. Estimated blood loss 500 mL 2. Hypotension and bradycardia possibly related to patient's spinal anesthesia. Improved with IV fluids. Patient seen evaluated by cardiology 3. Mildly elevated troponins: Seen by cardiology. They reported troponins did not show any significant elevation to suggest myocardial damage 4. History of COPD stable no evidence of exacerbation 5. Nicotine dependence: Discussed smoking cessation for greater than 3 minutes. Patient refusing nicotine patch 6. Essential hypertension history [place] patient's Norvasc and KITA inhibitor currently on hold DVT prophylaxis Lovenox and GI prophylaxis Pepcid Patient is stable he is cleared for discharge from medical standpoint pain management and DVT prophylaxis as per orthopedic protocol
[2018-02-23 14:54] VITALS: BP 126/81; PULSE 78; RESP 16; TEMP 98.9
[2018-02-23 15:21] VITALS: BMI 27.5
== END 2018-02-23 15:41 | disposition home health service (06) | DRG 470 ==
LOC: 2ORMAIN 11:06 → 3SUR 15:41 → 6ICU 16:28 → 3SUR 02-22 11:20
PROVIDERS: ADMIT Orthopaedic Surgery; ATTEND Orthopaedic Surgery
PROC: 0SR904A Replacement of Right Hip Joint with Ceramic on Polyethylene Synthetic Substitute, Uncemented, Open Approach (ICD-10-PCS; principal; 2018-02-21 13:00)
DX: M16.11 Unilateral primary osteoarthritis, right hip (principal); I95.9 Hypotension, unspecified; E86.1 Hypovolemia; F17.210 Nicotine dependence, cigarettes, uncomplicated; I10 Essential (primary) hypertension; I49.3 Ventricular premature depolarization; J44.9 Chronic obstructive pulmonary disease, unspecified; R74.8 Abnormal levels of other serum enzymes; K21.9 Gastro-esophageal reflux disease without esophagitis; Z86.718 Personal history of other venous thrombosis and embolism; Z88.1 Allergy status to other antibiotic agents; Z79.01 Long term (current) use of anticoagulants; Z79.899 Other long term (current) drug therapy
CPT/HCPCS: 36415; 71045; 73501; 80048; 80053; 83735; 84132; 84484; 85025; 85610; 86850; 86900; 86901; 88300; 93306; 94640; 94760